=== PATIENT | male | born 1995 | race Caucasian/White ===

== ENCOUNTER 2017-01-10 19:29 | Emergency (ER) | payer SELFPAY ==
[~2017-01-10] VITALS: Ht 167.6 cm; Wt 68.0 kg
[~2017-01-10 19:29] MED LIST: 'PARAFON FORTE500 M1 PO; CYCLOBENZAPRINE5 M3 PO; HYDROCODONE BIT1 T11 PO; MOTRIN400 MG PO; Motrin,Rufen800 MG PO; NAPROSYN500 MG PO; NORCO 5-325 TA1 EACH PO; PERCOCET 325 MG1 TA2 PO; PREDNICOT10 MG PO
[2017-01-10 19:53] VITALS: BP 135/75
[2017-01-10 20:44] LABS: BASO # 0.1 10*3/uL (0.0-0.1); BASO % 0.8 % (0.0-1.0); EOS # 0.2 10*3/uL (0.0-0.4); EOS % 3.2 % (1.0-4.0); HEMATOCRIT 44.2 % (42.0-52.0); HEMOGLOBIN 15.4 g/dl (14.0-18.0); LYMPH # 2.3 10*3/uL (1.3-4.4); MEAN CELL VOLUME 89.8 fl (80.0-94.0); MEAN CORPUSCULAR HGB 31.3 pg (27.0-31.0); MEAN CORPUSCULAR HGB CONC 34.8 g/dl (33.0-37.0); MONO # 0.6 10*3/uL (0.1-1.0); MONO % 9.2 % (3.0-9.0); NEUT # 3.1 10*3/uL (2.3-7.9); NEUT % 49.5 % (47.0-73.0); PLATELET COUNT AUTOMATED 225 10*3/uL (130-400); RED BLOOD COUNT 4.92 10*6/uL (4.50-5.90); WHITE BLOOD COUNT 6.2 10*3/uL (4.8-10.8)
[2017-01-10 20:58] LABS: ALBUMIN 3.8 gm/dl (3.1-4.5); ALKALINE PHOSPHATASE 68 U/L (45-117); BUN 9 mg/dl (7-24); CHLORIDE 108 mmol/L (98-107); CREATININE 0.84 mg/dL (0.70-1.30); LIPASE 76 U/L (73-393); MAGNESIUM 2.4 mg/dL (1.5-2.1); SGOT/AST 14 IU/L (3-35); SGPT/ALT 17 U/L (12-78); SODIUM 141 mmol/L (136-145)
[2017-01-10 21:07] LABS: BILIRUBIN NEGATIVE (NEGATIVE); BLOOD NEGATIVE (NEGATIVE); CLARITY SL CLOUDY (CLEAR); COLOR YELLOW (YELLOW); GLUCOSE NEGATIVE (NEGATIVE); KETONE TRACE (NEGATIVE); LEUKO ESTERASE NEGATIVE (NEGATIVE); NITRITE NEGATIVE (NEGATIVE); SPECIFIC GRAVITY 1.025 (1.005-1.030)
[2017-01-10 21:15] LABS: BACTERIA TRACE
[2017-01-10 21:16] LABS: RBC 0-2 rbc/hpf (0-2); WBC 0-2 wbc/hpf (0-5)
[2017-01-10] MEDS ORDERED: NORCO 5-325 TA1 EACH PO (22:58)
[2017-01-10] MEDS ORDERED: KEFLEX500 M1 PO (22:58)
[2017-01-10] MEDS ORDERED: FLAGYL500 MG PO (22:58)
== END 2017-01-10 23:43 | disposition home or self-care (01) ==
LOC: ED 19:29
PROVIDERS: Emergency Medicine Emergency Medical Services
DX: K52.9 Noninfective gastroenteritis and colitis, unspecified (principal)

== ENCOUNTER 2017-05-08 23:13 | Emergency (ER) | payer SELFPAY ==
[~2017-05-08] VITALS: Ht 167.6 cm; Wt 68.0 kg
[~2017-05-08 23:13] MED LIST changes: +FLAGYL500 MG PO; +KEFLEX500 M1 PO
[2017-05-08 23:32] VITALS: BP 115/60
[2017-05-09] MEDS ORDERED: Motrin,Rufen800 MG PO (02:20)
== END 2017-05-09 02:22 | disposition home or self-care (01) ==
LOC: ED 23:13
DX: S05.12XA Contusion of eyeball and orbital tissues, left eye, initial encounter (principal); Y04.0XXA Assault by unarmed brawl or fight, initial encounter; Y93.89 Activity, other specified; Y92.89 Other specified places as the place of occurrence of the external cause; Y99.9 Unspecified external cause status

== ENCOUNTER 2017-08-05 11:59 | Emergency (ER) | payer SELFPAY ==
[~2017-08-05] VITALS: Ht 167.6 cm; Wt 72.6 kg
[2017-08-05 12:04] VITALS: BP 117/72
[2017-08-05] MEDS ORDERED: KEFLEX500 M1 PO (12:13)
== END 2017-08-05 12:40 | disposition home or self-care (01) ==
LOC: ED 11:59
DX: S61.411A Laceration without foreign body of right hand, initial encounter (principal); W25.XXXA Contact with sharp glass, initial encounter; Y93.89 Activity, other specified; Y92.89 Other specified places as the place of occurrence of the external cause; Y99.8 Other external cause status

== ENCOUNTER 2018-02-07 16:39 | Emergency (ER) | payer SELFPAY ==
[~2018-02-07] VITALS: Wt 63.5 kg
[2018-02-07 17:49] LABS: BASO % 0.4 % (0.0-1.0); LYMPH # 0.3 10*3/uL (1.3-4.4); LYMPH % 4.8 % (27.0-41.0); MEAN CELL VOLUME 91.7 fl (80.0-94.0); MEAN CORPUSCULAR HGB 31.3 pg (27.0-31.0); MEAN CORPUSCULAR HGB CONC 34.1 g/dl (33.0-37.0); MEAN PLATELET VOLUME 11.2 fl (9.6-12.3); MONO # 0.4 10*3/uL (0.1-1.0); MONO % 6.4 % (3.0-9.0); PLATELET COUNT AUTOMATED 170 10*3/uL (130-400); RED BLOOD COUNT 4.47 10*6/uL (4.50-5.90); RED CELL DISTRI WIDTH 12.1 % (0-14.5); WHITE BLOOD COUNT 6.9 10*3/uL (4.8-10.8)
[2018-02-07 18:05] LABS: ALKALINE PHOSPHATASE 58 U/L (45-117); BUN 11 mg/dl (7-24); CHLORIDE 109 mmol/L (98-107); CREATININE 0.92 mg/dL (0.70-1.30); POTASSIUM 3.8 mmol/L (3.5-5.1); SGOT/AST 7 IU/L (3-35); SGPT/ALT 17 U/L (12-78); SODIUM 141 mmol/L (136-145); TOTAL PROTEIN 6.6 gm/dL (6.4-8.2)
[2018-02-07 18:23] VITALS: BP 103/44
== END 2018-02-07 18:59 | disposition home or self-care (01) ==
LOC: ED 16:39
PROVIDERS: Nurse Practitioner Family
DX: B34.9 Viral infection, unspecified (principal); R51 Headache; H53.149 Visual discomfort, unspecified

== ENCOUNTER 2018-10-02 18:45 | Emergency (ER) | payer SELFPAY ==
[~2018-10-02] VITALS: Wt 65.8 kg
[2018-10-02 18:45] VITALS: BP 131/75
== END 2018-10-02 20:20 ==
LOC: ED 18:45
DX: S61.512A Laceration without foreign body of left wrist, initial encounter (principal); W45.8XXA Other foreign body or object entering through skin, initial encounter; Y93.89 Activity, other specified; Y92.89 Other specified places as the place of occurrence of the external cause; Y99.0 Civilian activity done for income or pay

== ENCOUNTER 2019-01-20 11:01 | Emergency (ER) | payer SELFPAY ==
[~2019-01-20] VITALS: Ht 167.6 cm
[2019-01-20 11:03] VITALS: BP 141/77
[2019-01-20] MEDS ORDERED: NORCO 5-325 TA1 EACH PO (12:50)
[2019-01-20] MEDS ORDERED: IBUPROFEN600 MG PO (12:50)
== END 2019-01-20 12:59 | disposition home or self-care (01) ==
LOC: ED 11:01
DX: S40.011A Contusion of right shoulder, initial encounter (principal); W18.39XA Other fall on same level, initial encounter; Y93.89 Activity, other specified; Y92.89 Other specified places as the place of occurrence of the external cause; Y99.8 Other external cause status

== ENCOUNTER 2019-02-26 05:01 | Emergency (ER) | payer SELFPAY ==
[~2019-02-26] VITALS: Ht 167.6 cm; Wt 64.4 kg
[~2019-02-26 05:01] MED LIST changes: +IBUPROFEN600 MG PO
[2019-02-26 05:02] VITALS: BP 118/60
== END 2019-02-26 05:56 | disposition home or self-care (01) ==
LOC: ED 05:01
DX: S01.81XA Laceration without foreign body of other part of head, initial encounter (principal); Z79.899 Other long term (current) drug therapy; Z79.2 Long term (current) use of antibiotics; W22.8XXA Striking against or struck by other objects, initial encounter; Y93.89 Activity, other specified; Y92.89 Other specified places as the place of occurrence of the external cause; Y99.8 Other external cause status

== ENCOUNTER 2019-08-19 20:08 | Emergency (ER) | payer SELFPAY ==
[~2019-08-19] VITALS: Ht 167.6 cm; Wt 63.5 kg
[2019-08-19 20:50] LABS: BASO % 0.3 % (0.0-1.0); HEMATOCRIT 44.9 % (42.0-52.0); HEMOGLOBIN 15.2 g/dl (14.0-18.0); LYMPH # 0.8 10*3/uL (1.3-4.4); LYMPH % 6.3 % (27.0-41.0); MEAN CELL VOLUME 92.4 fl (80.0-94.0); MEAN CORPUSCULAR HGB 31.3 pg (27.0-31.0); MEAN CORPUSCULAR HGB CONC 33.9 g/dl (33.0-37.0); MEAN PLATELET VOLUME 11.3 fl (9.6-12.3); MONO # 0.4 10*3/uL (0.1-1.0); MONO % 3.5 % (3.0-9.0); NEUT # 11.2 10*3/uL (2.3-7.9); NEUT % 89.6 % (47.0-73.0); PLATELET COUNT AUTOMATED 204 10*3/uL (130-400); RED BLOOD COUNT 4.86 10*6/uL (4.50-5.90); RED CELL DISTRI WIDTH 12.3 % (0-14.5); WHITE BLOOD COUNT 12.6 10*3/uL (4.8-10.8)
[2019-08-19 21:05] LABS: ALKALINE PHOSPHATASE 60 U/L (45-117); BUN 11 mg/dl (7-24); CHLORIDE 109 mmol/L (98-107); CREATININE 0.75 mg/dL (0.70-1.30); LIPASE 26 U/L (73-393); POTASSIUM 4.1 mmol/L (3.5-5.1); SGOT/AST 7 IU/L (3-35); SGPT/ALT 18 U/L (12-78); SODIUM 140 mmol/L (136-145); TOTAL PROTEIN 7.3 gm/dL (6.4-8.2)
[2019-08-19 22:04] VITALS: BP 130/64
== END 2019-08-19 21:48 | disposition home or self-care (01) ==
LOC: ED 20:08
PROVIDERS: Nurse Practitioner Family
DX: A08.4 Viral intestinal infection, unspecified (principal); R11.2 Nausea with vomiting, unspecified; F17.200 Nicotine dependence, unspecified, uncomplicated; Z79.899 Other long term (current) drug therapy; Z79.2 Long term (current) use of antibiotics

== ENCOUNTER 2020-01-17 14:51 | Emergency (ER) | payer SELFPAY ==
[~2020-01-17] VITALS: Wt 68.0 kg
[2020-01-17 14:55] VITALS: BP 108/58
[2020-01-17] MEDS ORDERED: DOXYCYCLINE100 M3 PO (16:14)
[2020-01-17] MEDS ORDERED: IBUPROFEN600 MG PO (16:14)
== END 2020-01-17 16:34 | disposition home or self-care (01) ==
LOC: ED 14:51
DX: L02.212 Cutaneous abscess of back [any part, except buttock and flank] (principal); Z79.899 Other long term (current) drug therapy

== ENCOUNTER 2020-04-22 11:10 | Emergency (ER) | payer SELFPAY ==
[~2020-04-22] VITALS: Wt 68.0 kg
[~2020-04-22 11:10] MED LIST changes: +DOXYCYCLINE100 M3 PO
[2020-04-22 11:23] VITALS: BP 138/99
[2020-04-22] MEDS ORDERED: NAPROSYN500 MG PO (12:48)
== END 2020-04-22 12:35 | disposition home or self-care (01) ==
LOC: ED 11:10
DX: S40.011A Contusion of right shoulder, initial encounter (principal); F17.200 Nicotine dependence, unspecified, uncomplicated; Z79.899 Other long term (current) drug therapy; X58.XXXA Exposure to other specified factors, initial encounter; Y93.89 Activity, other specified; Y92.89 Other specified places as the place of occurrence of the external cause; Y99.8 Other external cause status

== ENCOUNTER 2020-04-27 18:11 | Emergency (ER) | payer SELFPAY ==
[~2020-04-27] VITALS: Ht 167.6 cm; Wt 68.0 kg
[2020-04-27 18:14] VITALS: BP 138/63
[2020-04-27 18:35] LABS: BILIRUBIN Negative (Negative); BLOOD Negative (Negative); CLARITY Clear (Clear); COLOR Yellow (Yellow); GLUCOSE Negative (Negative); KETONE Negative (Negative); LEUKO ESTERASE Trace (Negative); NITRITE Negative (Negative); PH 6.5 (4.5-8.0); SPECIFIC GRAVITY 1.015 (1.001-1.030); UROBILINOGEN 0.2 E.U./dl (0.0-1.0)
[2020-04-27 18:47] LABS: BACTERIA TRACE; EPITHELIAL CELLS 0-2
== END 2020-04-27 18:58 | disposition home or self-care (01) ==
LOC: ED 18:11
PROVIDERS: Emergency Medicine
DX: Z11.3 Encounter for screening for infections with a predominantly sexual mode of transmission (principal); Z20.2 Contact with and (suspected) exposure to infections with a predominantly sexual mode of transmission; F17.200 Nicotine dependence, unspecified, uncomplicated; Z79.2 Long term (current) use of antibiotics; Z79.899 Other long term (current) drug therapy

== ENCOUNTER → 2021-02-03 | Outpatient (CLI) | payer OTHER | END | disposition home or self-care (01) | LOC: COVID19 15:32 | PROVIDERS: ATTEND Internal Medicine | DX: U07.1 COVID-19 (principal) ==

== ENCOUNTER 2021-05-19 10:21 | Emergency (ER) | payer SELFPAY ==
[~2021-05-19] VITALS: Wt 70.8 kg
[2021-05-19 10:36] VITALS: BP 106/68
[2021-05-19] MEDS ORDERED: IBUPROFEN600 MG PO (12:26)
[2021-05-19] MEDS ORDERED: PENICILLIN VK500 MG PO (12:26)
== END 2021-05-19 12:33 | disposition home or self-care (01) ==
LOC: ED 10:21
DX: K08.89 Other specified disorders of teeth and supporting structures (principal); F17.200 Nicotine dependence, unspecified, uncomplicated; Z79.899 Other long term (current) drug therapy; Z79.2 Long term (current) use of antibiotics

== ENCOUNTER 2021-08-19 10:47 | Emergency (ER) | payer SELFPAY ==
[~2021-08-19] VITALS: Wt 68.0 kg
[~2021-08-19 10:47] MED LIST changes: +PENICILLIN VK500 MG PO
[2021-08-19 11:13] VITALS: BP 117/66
[2021-08-19] MEDS ORDERED: CLINDAMYCIN HC300 MG PO (11:26)
[2021-08-19] MEDS ORDERED: Motrin,Rufen800 MG PO (11:26)
== END 2021-08-19 12:15 | disposition home or self-care (01) ==
LOC: ED 10:47
DX: K04.7 Periapical abscess without sinus (principal); F17.200 Nicotine dependence, unspecified, uncomplicated

== ENCOUNTER 2021-10-12 15:11 | Emergency (ER) | payer SELFPAY ==
[~2021-10-12 15:11] MED LIST changes: +CLINDAMYCIN HC300 MG PO
== END 2021-10-12 15:34 | disposition left against medical advice (07) ==
LOC: ED 15:11
DX: Z53.21 Procedure and treatment not carried out due to patient leaving prior to being seen by health care provider (principal)

== ENCOUNTER 2021-12-16 08:47 | Emergency (ER) | payer SELFPAY ==
[~2021-12-16] VITALS: Ht 165.1 cm; Wt 68.0 kg
[2021-12-16 08:55] VITALS: BP 124/48
[2021-12-16 09:40] LABS: BUN 13 mg/dl (7-24); CHLORIDE 108 mmol/L (98-107); CREATININE 0.82 mg/dL (0.70-1.30); SODIUM 139 mmol/L (136-145)
[2021-12-16] MEDS ORDERED: METHOCARBAMOL750 M1 PO (13:07)
[2021-12-16] MEDS ORDERED: IBU800 MG PO (13:07)
== END 2021-12-16 13:25 | disposition home or self-care (01) ==
LOC: ED 08:47
PROVIDERS: Emergency Medicine
DX: M62.830 Muscle spasm of back (principal); M54.50 Low back pain, unspecified; W18.30XA Fall on same level, unspecified, initial encounter; Y93.01 Activity, walking, marching and hiking; Y92.69 Other specified industrial and construction area as the place of occurrence of the external cause; Y99.9 Unspecified external cause status

== ENCOUNTER 2022-10-14 14:50 | Emergency (ER) | payer SELFPAY ==
[~2022-10-14] VITALS: Ht 167.6 cm; Wt 75.7 kg
[~2022-10-14 14:50] MED LIST changes: +IBU800 MG PO; +METHOCARBAMOL750 M1 PO
[2022-10-14 15:03] VITALS: BP 112/78
== END 2022-10-14 16:44 | disposition home or self-care (01) ==
LOC: ED 14:50
DX: M25.531 Pain in right wrist (principal)

== ENCOUNTER 2023-05-26 09:36 | Emergency (ER) | payer SELFPAY ==
[~2023-05-26] VITALS: Ht 167.6 cm; Wt 70.8 kg
[2023-05-26 09:57] VITALS: BP 111/56
[2023-05-26 11:39] LABS: BILIRUBIN Negative (Negative); BLOOD 1+ (Negative); CLARITY Clear (Clear); COLOR Dark Yellow (Yellow); GLUCOSE Negative (Negative); KETONE Trace (Negative); LEUKO ESTERASE Negative (Negative); NITRITE Negative (Negative); PH 5.5 (4.5-8.0); SPECIFIC GRAVITY >= 1.030 (1.001-1.030)
[2023-05-26 12:32] LABS: BACTERIA 3+
== END 2023-05-26 12:56 | disposition left against medical advice (07) ==
LOC: ED 09:36
PROVIDERS: Emergency Medicine
DX: R10.9 Unspecified abdominal pain (principal); Z53.21 Procedure and treatment not carried out due to patient leaving prior to being seen by health care provider